=== PATIENT | male | born 1945 | race Two or more races ===

== ENCOUNTER 2020-02-27 07:38 | Day surgery (SDC) | payer OTHER | END 2020-02-27 12:25 | disposition home or self-care (01) | LOC: AMB-ENDOS 07:38 | PROVIDERS: ATTEND Colon & Rectal Surgery | DX: D12.5 Benign neoplasm of sigmoid colon (principal); K64.1 Second degree hemorrhoids; Z20.828 Contact with and (suspected) exposure to other viral communicable diseases ==

== ENCOUNTER 2020-04-06 11:15 | Inpatient (IN) | payer OTHER ==
[~2020-04-06] VITALS: Ht 157.5 cm; Wt 63.5 kg
[2020-04-06] MEDS ORDERED: COZAAR100 MG PO (15:52)
[2020-04-06] MEDS ORDERED: TOPROL XL25 M1 PO (15:52)
[2020-04-13] MEDS ORDERED: HYDROCHLOROTHIA25 MG (09:36)
[2020-04-13] MEDS ORDERED: GABAPENTIN400 MG (09:36)
== END 2020-04-16 18:31 | disposition home or self-care (01) | DRG 330 ==
LOC: O/R 04-13 09:26 → SURH 04-13 09:26
PROVIDERS: ADMIT Colon & Rectal Surgery; ATTEND Colon & Rectal Surgery
PROC: 0DBM4ZZ Excision of Descending Colon, Percutaneous Endoscopic Approach (ICD-10-PCS; principal; 2020-04-13 17:45)
DX: C20 Malignant neoplasm of rectum (principal); K92.1 Melena; Z93.3 Colostomy status; Z85.048 Personal history of other malignant neoplasm of rectum, rectosigmoid junction, and anus; I10 Essential (primary) hypertension